=== PATIENT | male | born 2000 | race Caucasian/White ===

== ENCOUNTER 2020-12-13 18:42 | Emergency (ER) | payer OTHER ==
[~2020-12-13] VITALS: Ht 182.9 cm; Wt 90.7 kg
[2020-12-13 18:42] VITALS: BP_SYST 96
[2020-12-13] MEDS ORDERED: ALPRAZolam 0.25 MG TABLET PO ONE (19:00)
[2020-12-13 19:41] LABS: BASOPHILS % (AUTO) 0.3 % (0.0-2.0); EOSINOPHILS % (AUTO) 0.8 % (0.0-4.0); HEMATOCRIT 43.8 % (36-54); HEMOGLOBIN 15.1 g/dL (14.0-18.0); LYMPHOCYTES # (AUTO) 1.7 K/uL (1.0-5.5); LYMPHOCYTES % (AUTO) 31.2 % (20.5-51.5); MEAN CORPUSCULAR HEMOGLOBIN 29 pg (27-31); MEAN CORPUSCULAR HGB CONC 35 % (32-36); MEAN CORPUSCULAR VOLUME 84 fL (79.0-98.0); MONOCYTES # (AUTO) 0.5 K/uL (0.0-1.0); MONOCYTES % (AUTO) 8.8 % (1.7-9.3); NEUTROPHILS # (AUTO) 3.2 K/uL (1.8-7.7); NEUTROPHILS % (AUTO) 58.9 % (40.0-70.0); PLATELET COUNT (AUTO) 242 K/uL (130-430); RED BLOOD CELL COUNT(AUTO) 5.22 MIL/uL (4.2-6.2); RED CELL DISTRIBUTION WIDTH 13.5 % (9.0-15.0); WHITE BLOOD COUNT (AUTO) 5.5 K/uL (4.8-10.8)
[2020-12-13 19:50] LABS: ANION GAP 10 (5-15); CALCIUM 8.3 mg/dL (8.4-11.0); CHLORIDE 107 mmol/L (98-107); CREATININE 1.07 mg/dL (0.55-1.30); GFR AFRICAN AMERICAN 111 mL/min (>90); GLUCOSE 97 mg/dL (70-99); POTASSIUM 3.5 mmol/L (3.5-5.1); SODIUM SERUM 143 mmol/L (136-145); UREA NITROGEN, BLOOD 13 mg/dL (8-21)
[2020-12-13 19:53] LABS: PROTHROMBIN TIME 10.2 SECS (9.5-12.5)
[2020-12-13 20:04] LABS: ALANINE AMINOTRANSFERASE 34 U/L (12-78); ALCOHOL, BLOOD < 3 mg/dL (<10); ASPARTATE AMINOTRANSFERASE 17 U/L (10-37); TOTAL BILIRUBIN 0.9 mg/dL (0.0-1.0)
[2020-12-13 21:35] VITALS: BP_SYST 121
== END 2020-12-13 21:35 | disposition home or self-care (01) ==
LOC: SED 18:42
DX: R00.2 Palpitations (principal); Z91.040 Latex allergy status
CPT/HCPCS: 36415; 71045; 80053; 82962; 85025; 85379; 85610; 93005; 99285; G0482